=== PATIENT | male | born 1970 | race Caucasian/White ===

== ENCOUNTER 2016-11-13 12:28 | Emergency (ER) | payer SELFPAY ==
[~2016-11-13] VITALS: Ht 167.6 cm; Wt 120.4 kg
[2016-11-13 12:38] VITALS: BP 166/109
--- NOTE | 2016-11-13 13:11 | RAD ---
Right wrist, 4 views, 11/13/2016: History: Wrist injury No fracture or dislocation is identified. There is mild soft tissue swelling. IMPRESSION: No acute bony abnormality is detected.
[2016-11-13] MEDS ORDERED: HYDROCODONE/APAP 5/325MG TABLET. PO ONE (13:15)
[2016-11-13] MEDS ORDERED: HYDR-971 PO (14:48)
[2016-11-13] MEDS ORDERED: TRAM50TA PO (14:52)
--- NOTE | 2016-11-13 17:54 | ED.ADGEN ---
Past History Past Medical History: Hypothyroid Past Surgical History: Tonsillectomy Alcohol Use: Rarely Drug Use: None Adult General Chief Complaint Chief Complaint arm pain HPI HPI Patient is a 46 year old male who presents with right arm pain. Pt was changing a tire and pulling on the tire when he felt a sudden pain in his distal forearm on the right medial aspect. He then noted that his ring and small finger on the hand were flexed and has pain proximal to the wrist with attempts to extend the fingers. He denies a crush injury and no other injuries reported. No similar previous episode. Occurred just prior to arrival. Pt is from [facility] and is travelling to [place] for a family visit. Review of Systems Review of Systems Constitutional: Denies fever or chills [] Eyes: Denies change in visual acuity, redness, or eye pain [] HENT: Denies nasal congestion or sore throat [] Respiratory: Denies cough or shortness of breath [] Cardiovascular: Denies chest pain GI: Denies abdominal pain, nausea, vomiting, bloody stools or diarrhea [] : Denies dysuria or hematuria [] Musculoskeletal: Denies back pain Integument: Denies rash or skin lesions [] Neurologic: Denies headache, focal weakness or sensory changes [] Endocrine: Denies polyuria or polydipsia [] Current Medications Current Medications Current Medications Medications (Trade) Dose Ordered Sig/Veronica Start Time Stop Time Status Last Admin Dose Admin Acetaminophen/ Hydrocodone Bitart (Lortab 5/325) 2 tab 1X ONCE 11/13/16 13:15 11/13/16 13:16 DC 11/13/16 13:05 2 TAB Allergies Allergies Allergies Coded Allergies Type Severity Reaction Last Updated Verified No Known Drug Allergies 11/13/16 No Physical Exam Physical Exam Constitutional: Well developed, well nourished, mild acute distress 2/2 to pain , non-toxic appearance. [] HENT: Normocephalic, atraumatic, bilateral external ears normal, oropharynx moist, no oral exudates, nose normal. [] Eyes: PERRLA, EOMI, conjunctiva normal, no discharge. [] Neck: Normal range of motion, no tenderness, supple, no stridor. [] Cardiovascular:Heart rate regular with regular rhythm, no murmur [] Lungs & Thorax: Bilateral breath sounds clear to auscultation, no wheeze Skin: Warm, dry, intact Back: No tenderness, no CVA tenderness. [] Extremities: Right upper extremity has tenderness to palpation just proximal to the wrist joint on the medial aspect of the forearm with trace amounts of edema , no bulging, sensory is intact, his fourth and fifth digit of his right hand is held in a flexed position, difficulty with extension secondary to pain. On initial attempt to extend there is good strength but he stops when the pain starts. He also has difficulty flexing and a forced position secondary to pain. He has no tenderness to palpation to the fingers or hand bones, no tenderness over the wrist, Refill is less than 3 seconds and radial pulses intact Neurologic: Alert and oriented X 3, normal motor function, normal sensory function, no focal deficits noted. [] Psychologic: Affect normal, judgement normal, mood normal. [] Current Patient Data Vital Signs Vital Signs Date Time Temp Pulse Resp B/P Pulse Ox O2 Delivery O2 Flow Rate FiO2 11/13/16 13:05 20 98 Room Air 11/13/16 12:38 97.7 97 EKG EKG [] Radiology/Procedures Radiology/Procedures XR wrist: History: Wrist injury No fracture or dislocation is identified. There is mild soft tissue swelling. IMPRESSION: No acute bony abnormality is detected. [] Course & Med Decision Making Course & Med Decision Making Pertinent Labs and Imaging studies reviewed. (See chart for details) Patient was given 2 Evergreen tablets for pain control. An x-ray of his wrist was performed and there is no acute bony abnormality appreciated. I believe patient has a soft tissue injury that is affecting his ulnar nerve debilitating his extensor function of his fourth and fifth digit. He's got normal sensory, skin is intact. I counseled to Dr. Chappell by phone, discussed patient's exam and findings. He agrees and recommends an ulnar gutter splint with follow-up with an orthopedic surgeon in 1 week. I counseled the patient extensively on signs and symptoms of compartment syndrome and if he develops any the symptoms he should go immediately to an emergency room for reevaluation. Patient voice understanding, he was discharged with Evergreen tablets and instructed not to drive while taking. He plans to proceed to [place] and when he returns he will follow- up with his orthopedic doctor. Final Impression Final Impression Arm injury with pain [] Problems: Dragon Disclaimer Dragon Disclaimer This electronic medical record was generated, in whole or in part, using a voice recognition dictation system. JESSICA CONTI MD Nov 13, 2016 17:53
== END 2016-11-13 14:50 | disposition home or self-care (01) ==
LOC: ER 12:28
DX: S59.911A Unspecified injury of right forearm, initial encounter (principal); E03.9 Hypothyroidism, unspecified; X58.XXXA Exposure to other specified factors, initial encounter; Y93.89 Activity, other specified; Y99.8 Other external cause status; Y92.89 Other specified places as the place of occurrence of the external cause
CPT/HCPCS: 29125; 73110; 99284-25